=== PATIENT | male | born 1980 | race Caucasian/White ===

== ENCOUNTER → 2020-04-19 | Outpatient (CLI) | payer BC, OTHER ==
[~2020-04-19] MED LIST: CIPROFLOXACIN500 M3 PO; IBUPROFEN 600600 M1 PO; IMITREX4 MG/0.5 M SUBQ; NAPROSYN500 MG PO; PERCOCET 10-321 EACH PO; PERCOCET 5-3251 EACH PO; TAMSULOSIN HCL0.4 MG PO; TOPAMAX50 MG PO; VICODIN 5-5001 EACH
== END ==
LOC: LAB 14:08
PROVIDERS: ATTEND Family Medicine
DX: R19.7 Diarrhea, unspecified (principal); G43.909 Migraine, unspecified, not intractable, without status migrainosus; R11.0 Nausea; Z20.828 Contact with and (suspected) exposure to other viral communicable diseases